=== PATIENT | female | born 1945 | race Caucasian/White ===

== ENCOUNTER 2021-05-16 00:13 | Emergency (ER) | payer OTHER ==
[~2021-05-16] VITALS: Ht 154.9 cm; Wt 56.7 kg
[2021-05-16] MEDS ORDERED: TORADOL 10 MG T10 MG PO (02:43)
[2021-05-16] MEDS ORDERED: HYDROCODON-ACE1 EAC7 PO (02:43)
[2021-05-16 03:22] VITALS: BP 187/88
== END 2021-05-16 03:25 | disposition home or self-care (01) ==
LOC: M.ERS 00:13
DX: S32.029A Unspecified fracture of second lumbar vertebra, initial encounter for closed fracture (principal); Z88.8 Allergy status to other drugs, medicaments and biological substances; Z88.2 Allergy status to sulfonamides; V89.2XXA Person injured in unspecified motor-vehicle accident, traffic, initial encounter; Y93.89 Activity, other specified; Y92.89 Other specified places as the place of occurrence of the external cause; Y99.8 Other external cause status